=== PATIENT | female | born 1980 | race African-American/Black ===

== ENCOUNTER 2016-12-14 12:15 | Emergency (ER) | payer SELFPAY ==
[~2016-12-14] VITALS: Ht 160 cm; Wt 127.0 kg
[~2016-12-14 12:15] MED LIST: NO HOME MEDS; ULTRAM50 M1 PO
[2016-12-14] MEDS ORDERED: DOXYCYC MONO50 M1 PO (15:04)
[2016-12-14] MEDS ORDERED: MOTRIN400 MG PO (15:04)
[2016-12-14 15:26] VITALS: BP 168/103
== END 2016-12-14 15:34 | disposition home or self-care (01) | DRG 74 ==
LOC: ED 12:15
DX: G56.01 Carpal tunnel syndrome, right upper limb (principal); L73.9 Follicular disorder, unspecified; I10 Essential (primary) hypertension; F17.210 Nicotine dependence, cigarettes, uncomplicated

== ENCOUNTER 2017-01-02 18:25 | Emergency (ER) | payer SELFPAY ==
[~2017-01-02] VITALS: Ht 160 cm; Wt 120.0 kg
[~2017-01-02 18:25] MED LIST changes: +DOXYCYC MONO50 M1 PO; +MOTRIN400 MG PO
[2017-01-02 19:36] LABS: HEMATOCRIT 40.4 % (37.0-47.0); HEMOGLOBIN 13.1 g/dl (12.0-16.0); IMMATURE GRANULOCYTES 0.3 % (0.0-1.0); MEAN CELL VOLUME 74.5 fL CALC (80.0-100.0); MEAN CORPUSCULAR HGB 24.2 pG CALC (26.0-32.0); MEAN CORPUSCULAR HGB CONC 32.4 g/L CALC (32.0-36.0); NEUT# 2.13 thou/uL (2.00-7.15); RED BLOOD COUNT 5.42 mill/uL (4.20-5.60); RED CELL DISTRI WIDTH 15.7 % (11.5-15.5)
[2017-01-02 20:23] LABS: ALBUMIN 3.9 g/dL (3.2-5.0); ALKALINE PHOSPHATASE 64 u/l (38-126); ANION GAP 15 (6-22 (CALC)); BILIRUBIN, TOTAL 0.4 mg/dL (0.0-1.4); BUN 11 mg/dL (7-17); BUN/CREATININE RATIO 21 (12-20 (CALC)); CALCIUM 9.4 mg/dL (8.4-10.2); CARBON DIOXIDE 24 mmol/l (22-30); CHLORIDE 109 mmol/l (95-108); CREATININE 0.6 mg/dL (0.5-1.0); GFR > 60 ML/MIN (>=60 (CALC)); GFR FOR AFR.AMER. > 60 ML/MIN (>=60 (CALC)); GLUCOSE 104 mg/dL (65-105); SGOT/AST 51 u/l (14-36); SGPT/ALT 51 u/l (9-52); SODIUM 144 mmol/l (137-146); TOTAL PROTEIN 7.3 g/dL (6.3-8.2)
[2017-01-02] MEDS ORDERED: TRAMADOL HYDROC50 MG PO (20:49)
[2017-01-02] MEDS ORDERED: DOXYCYC MONO100 M1 PO (20:49)
[2017-01-02] MEDS ORDERED: PREDNISONE50 MG PO (20:49)
[2017-01-02 21:07] VITALS: BP 160/98
== END 2017-01-02 21:05 | disposition home or self-care (01) | DRG 554 ==
LOC: ED 18:25
PROVIDERS: Emergency Medicine
DX: M19.041 Primary osteoarthritis, right hand (principal); L70.9 Acne, unspecified; M25.441 Effusion, right hand; M25.541 Pain in joints of right hand; M25.562 Pain in left knee; M25.561 Pain in right knee

== ENCOUNTER 2017-01-19 08:30 | Emergency (ER) | payer SELFPAY ==
[~2017-01-19] VITALS: Ht 160 cm; Wt 130.0 kg
[~2017-01-19 08:30] MED LIST changes: +DOXYCYC MONO100 M1 PO; +PREDNISONE50 MG PO; +TRAMADOL HYDROC50 MG PO
[2017-01-19] MEDS ORDERED: LORTAB 1010 MG PO (08:56)
[2017-01-19 09:15] VITALS: BP 120/97
== END 2017-01-19 09:23 | disposition home or self-care (01) | DRG 556 ==
LOC: ED 08:30
DX: M25.542 Pain in joints of left hand (principal); M25.561 Pain in right knee; M25.541 Pain in joints of right hand; M25.562 Pain in left knee

== ENCOUNTER 2017-02-09 08:25 | Emergency (ER) | payer SELFPAY ==
[~2017-02-09] VITALS: Ht 160 cm; Wt 131.0 kg
[~2017-02-09 08:25] MED LIST changes: +LORTAB 1010 MG PO
[2017-02-09 09:34] LABS: URINE BLOOD DIPSTICK TRACE-INTACT (NEGATIVE); URINE COLOR YELLOW; URINE GLUCOSE - DIPSTICK NEGATIVE (NEGATIVE); URINE KETONE 15 mg/dL (NEGATIVE); URINE LEUK ESTERASE NEGATIVE (NEGATIVE); URINE NITRITE - DIPSTICK NEGATIVE (Negative); URINE PROTEIN - DIPSTICK 100 mg/dL (NEG-TRACE); URINE SPECIFIC GRAVITY 1.015; URINE UROBILINOGEN - DIPSTICK >=8.0 E.U./dL (0.2)
[2017-02-09 09:35] LABS: HEMATOCRIT 37.9 % (37.0-47.0); HEMOGLOBIN 12.2 g/dl (12.0-16.0); IMMATURE GRANULOCYTES 1.1 % (0.0-1.0); MEAN CORPUSCULAR HGB 23.8 pG CALC (26.0-32.0); MEAN CORPUSCULAR HGB CONC 32.2 g/L CALC (32.0-36.0); NEUT# 6.78 thou/uL (2.00-7.15); RED BLOOD COUNT 5.12 mill/uL (4.20-5.60); RED CELL DISTRI WIDTH 14.6 % (11.5-15.5)
[2017-02-09 09:38] LABS: URINE BILIRUBIN - DIPSTICK MODERATE (NEGATIVE); URINE CLARITY SL CLOUDY
[2017-02-09 09:39] LABS: URINE EPITHELIAL CELLS MODERATE EPI/hpf (0-FEW); URINE MUCUS FEW hpf (NONE-FEW); URINE RBC 0-2 RBC/hpf (0-5)
[2017-02-09 09:41] LABS: ALBUMIN 3.7 g/dL (3.2-5.0); ALKALINE PHOSPHATASE 64 u/l (38-126); AMYLASE 106 u/l (30-110); ANION GAP 16 (6-22 (CALC)); BILIRUBIN, TOTAL 0.8 mg/dL (0.0-1.4); BUN 9 mg/dL (7-17); BUN/CREATININE RATIO 15 (12-20 (CALC)); CALCIUM 8.9 mg/dL (8.4-10.2); CARBON DIOXIDE 33 mmol/l (22-30); CHLORIDE 94 mmol/l (95-108); CREATININE 0.6 mg/dL (0.5-1.0); GFR > 60 ML/MIN (>=60 (CALC)); GFR FOR AFR.AMER. > 60 ML/MIN (>=60 (CALC)); GLUCOSE 114 mg/dL (65-105); LIPASE 265 u/l (23-300); SGOT/AST 70 u/l (14-36); SGPT/ALT 39 u/l (9-52); SODIUM 139 mmol/l (137-146)
[2017-02-09 09:54] LABS: MYOGLOBIN 161 ng/mL (0 - 62)
[2017-02-09] MEDS ORDERED: HYDROCHLOROT25 MG PO ×2 (11:58→12:11)
[2017-02-09] MEDS ORDERED: POTASSIUM CHLO20 ME1 PO (12:11)
[2017-02-09] MEDS ORDERED: NORCO1 TA1 PO (12:11)
[2017-02-09] MEDS ORDERED: ZOFRAN4 MG/TAB PO (12:11)
[2017-02-09] MEDS ORDERED: LEVAQUIN500 MG PO (12:11)
[2017-02-09 12:30] VITALS: BP 109/67
== END 2017-02-09 12:40 | disposition home or self-care (01) | DRG 446 ==
LOC: ED 08:25
PROVIDERS: Emergency Medicine
DX: K80.20 Calculus of gallbladder without cholecystitis without obstruction (principal); E87.6 Hypokalemia; I10 Essential (primary) hypertension; M19.90 Unspecified osteoarthritis, unspecified site
CPT/HCPCS: Q9967

== ENCOUNTER 2017-03-02 12:38 | Emergency (ER) | payer SELFPAY ==
[~2017-03-02] VITALS: Ht 160 cm; Wt 132.0 kg
[~2017-03-02 12:38] MED LIST changes: +HYDROCHLOROT25 MG PO; +LEVAQUIN500 MG PO; +NORCO1 TA1 PO; +POTASSIUM CHLO20 ME1 PO; +ZOFRAN4 MG/TAB PO
[2017-03-02] MEDS ORDERED: FLONASE AL50 MCG/AC1 XX (15:02)
[2017-03-02] MEDS ORDERED: ALL DAY10 MG PO (15:02)
[2017-03-02] MEDS ORDERED: SUDAFED CONGEST30 MG PO (15:02)
[2017-03-02 15:09] VITALS: BP 122/75
== END 2017-03-02 15:15 | disposition home or self-care (01) | DRG 156 ==
LOC: ED 12:38
DX: R09.82 Postnasal drip (principal); F17.210 Nicotine dependence, cigarettes, uncomplicated; R05 Cough; R06.02 Shortness of breath; R09.81 Nasal congestion

== ENCOUNTER 2017-04-19 15:50 | Observation (INO) | payer SELFPAY ==
[~2017-04-19] VITALS: Ht 165.1 cm; Wt 122.2 kg
[~2017-04-19 15:50] MED LIST changes: +ALL DAY10 MG PO; +FLONASE AL50 MCG/AC1 XX; +SUDAFED CONGEST30 MG PO
--- NOTE | 2017-04-19 15:53 | NUR ---
PATIENT TRANSPORTED TO ROOM FOR EXAM VIA WHEELCHAIR.
[2017-04-19] MEDS ORDERED: HYDROCHLOROT25 MG PO (16:27)
[2017-04-19 16:47] LABS: HEMATOCRIT 40.2 % (37.0-47.0); IMMATURE GRANULOCYTES 0.8 % (0.0-1.0); MEAN CELL VOLUME 77.9 fL CALC (80.0-100.0); MEAN CORPUSCULAR HGB 25.2 pG CALC (26.0-32.0); MEAN CORPUSCULAR HGB CONC 32.3 g/L CALC (32.0-36.0); NEUT# 2.56 thou/uL (2.00-7.15); RED BLOOD COUNT 5.16 mill/uL (4.20-5.60); RED CELL DISTRI WIDTH 15.9 % (11.5-15.5)
--- NOTE | 2017-04-19 16:50 | NUR ---
PATIENT PLACED ON 2L/MIN OF O2 VIA NASAL CANNULA.
[2017-04-19 17:19] LABS: INFLUENZA A NONE DETECTED (NONE DETECT); INFLUENZA B NONE DETECTED (NONE DETECT)
[2017-04-19 17:22] LABS: ANION GAP 15 (6-22 (CALC)); BUN 6 mg/dL (7-17); BUN/CREATININE RATIO 11 (12-20 (CALC)); CARBON DIOXIDE 28 mmol/l (22-30); CHLORIDE 100 mmol/l (95-108); CHOLESTEROL HDL RATIO 7.1 (<4.4 (CALC)); CREATININE 0.5 mg/dL (0.5-1.0); GFR > 60 ML/MIN (>=60 (CALC)); GFR FOR AFR.AMER. > 60 ML/MIN (>=60 (CALC)); POTASSIUM 3.6 mmol/l (3.5-5.1); SODIUM 139 mmol/l (137-146)
--- NOTE | 2017-04-19 17:23 | NUR ---
PATIENT REPORTS CHEST PAIN 7/10 AT THIS TIME.
[2017-04-19 17:39] LABS: BETA-HCG, QUANT(RESULT NUMBER) <2 mIU/mL
[2017-04-19 17:54] LABS: TSH, 3RD GENERATION 0.85 uIU/mL (0.47 - 4.68)
[2017-04-19 17:54] LABS: URINE BLOOD DIPSTICK MODERATE (NEGATIVE); URINE COLOR YELLOW; URINE GLUCOSE - DIPSTICK NEGATIVE (NEGATIVE); URINE KETONE TRACE mg/dL (NEGATIVE); URINE LEUK ESTERASE NEGATIVE (NEGATIVE); URINE NITRITE - DIPSTICK NEGATIVE (Negative); URINE PH 5.5 (4.5-8.0); URINE PROTEIN - DIPSTICK TRACE mg/dL (NEG-TRACE); URINE SPECIFIC GRAVITY 1.025
--- NOTE | 2017-04-19 18:10 | NUR ---
PATIENT TOLERATED IV SITE PLACEMENT WELL. RADIOLOGY CALLED TO TAKE PATIENT DOWN FOR CT SCAN.
[2017-04-19 18:53] LABS: URINE BILIRUBIN - DIPSTICK SMALL (NEGATIVE); URINE CLARITY CLEAR; URINE SQUAMOUS EPITHELIAL CELL FEW EPI/hpf (0-FEW)
--- NOTE | 2017-04-19 18:53 | NUR ---
REPORT GIVEN TO ALLISON CERDA. CARE RELINQUISHED.
[2017-04-19 18:57] LABS: BARBITURATES NEGATIVE (NEGATIVE); COCAINE NEGATIVE (NEGATIVE); METHADONE NEGATIVE (NEGATIVE); OXCYCODONE NEGATIVE (NEGATIVE); TETRAHYDROCANNABIONOL NEGATIVE (NEGATIVE); TRICYLIC ANTIDEPRESSANTS NEGATIVE (NEGATIVE)
--- NOTE | 2017-04-19 19:06 | NUR ---
1 set blood cultures drawn from IV site in right A/C. Pt resting comfortably. talking about current illness. Very plesent.
--- NOTE | 2017-04-19 20:16 | NUR ---
attempted to call report to med/surg, advised that nurse recieving pt is busy will call back.
--- NOTE | 2017-04-19 20:33 | NUR ---
report called to Amadeo on med/surg.
--- NOTE | 2017-04-19 20:40 | NUR ---
PATIENT ARRIVED TO THE FLOOR IN STABLE CONDITION VIA STRETCHER AND ACCOMPANIED BY ED NURSE. PATIENT WEIGHED NND SETTLED TO BED. ORIENT PATIENT TO ROOM CALL SYSYEM. BED IN LOW POSITION AND CALL LIGHT IN REACH.
[2017-04-19 21:00] VITALS: BP 108/80
--- NOTE | 2017-04-20 | NUR ---
PATIENT LYING IN BED QUIETLY AT THIS TIME. NO APPARENT ACUTE DISTRESS NOTED. WILL CONTINUE TO MONITOR.
[2017-04-20 00:09] VITALS: BP 107/72
--- NOTE | 2017-04-20 04:00 | NUR ---
PATIENT RESTING IN BED QUIETLY WITH EYES CLOSED. RESPIRATION EVEN AND NON-LABORED. NO APPARENT ACUTE CHANGES NOTED IN PT'S CONDITION.
[2017-04-20 05:21] VITALS: BP 101/67
[2017-04-20 07:35] VITALS: BP 106/72
--- NOTE | 2017-04-20 07:35 | NUR ---
ASSESSMENT IS COMPLETED: IV SITE IS FREE FROM REDNES OR EDEMA. NO DISTRESS NOTED, BREATH SOUNDS ARE CLEAR, BILATERALLY, NO C/O SOB, HR IS REG,PULSES ARE STRONG X4. CONTINUE TO OSEBRVE AND MONITOR. TELE MONITOR IN PLACE.
[2017-04-20 11:11] VITALS: BP 119/80
--- NOTE | 2017-04-20 12:15 | NUR ---
PT HAS BEEN VISITING IN THE ROOM WITH FAMILY AND FRIENDS. NO DISTRESS NOTED. IV SITE IS FREE FROM REDNESS OR EDEMA. CONTINUE TO OSBERVE AND MONITOR.
[2017-04-20 15:36] VITALS: BP 119/83
--- NOTE | 2017-04-20 16:15 | NUR ---
PT IS RELAXING IN THE ROOM. NO DISTRESS NOTED. IV SITE IS FREE FROM REDNESS OR EDEMA. CONTINUE TO OSEBRVE AND MONITOR.
--- NOTE | 2017-04-20 19:00 | NUR ---
RECEIVED CHANGE OF SHIFT REPORT FROM TEOFILO FRANCIS. PT ALERT AND ORIENTED AND SITTING UP AT BEDSIDE. DENIES PAIN OR DISCOMFORT AT HIS TIME. NO APPARENT ACUTE DISTRESS NOTED. WILL CONTINUE TO MONITOR.
[2017-04-20 19:15] VITALS: BP 114/78
--- NOTE | 2017-04-21 | NUR ---
PT UP TO THE BATHROOM. TELE DANCE ENTERTAINER REPORTS HR OF 140. PT'S ASYMPTOMATIC.
[2017-04-21 00:38] VITALS: BP 107/75
--- NOTE | 2017-04-21 04:00 | NUR ---
PT RESTED WELL DURING THE NIGHT. NO APPARENT ACUTE CHANGES NOTED IN PT'S CONDITION.
[2017-04-21 05:27] VITALS: BP 107/76
[2017-04-21 05:34] LABS: HEMATOCRIT 39.4 % (37.0-47.0); HEMOGLOBIN 12.6 g/dl (12.0-16.0); IMMATURE GRANULOCYTES 1.4 % (0.0-1.0); MEAN CELL VOLUME 77.7 fL CALC (80.0-100.0); MEAN CORPUSCULAR HGB 24.9 pG CALC (26.0-32.0); NEUT# 1.47 thou/uL (2.00-7.15); RED BLOOD COUNT 5.07 mill/uL (4.20-5.60); RED CELL DISTRI WIDTH 15.5 % (11.5-15.5)
[2017-04-21 05:56] LABS: ANION GAP 13 (6-22 (CALC)); BUN 6 mg/dL (7-17); BUN/CREATININE RATIO 14 (12-20 (CALC)); CARBON DIOXIDE 29 mmol/l (22-30); CHLORIDE 104 mmol/l (95-108); CREATININE 0.4 mg/dL (0.5-1.0); GFR > 60 ML/MIN (>=60 (CALC)); GFR FOR AFR.AMER. > 60 ML/MIN (>=60 (CALC)); POTASSIUM 3.8 mmol/l (3.5-5.1); SODIUM 142 mmol/l (137-146)
--- NOTE | 2017-04-21 08:15 | NUR ---
ASSESSMENT IS COMPLETED: IV SITE IS FREE FROM REDNESS OR EDEMA. NO DISTRESS NOTED. HR IS REG,PULSES ARE STRONG X4. ABD IS SOFT WITH ACTIVE BS, CONTINUE TO OSEBRVE AND MONITOR. TELE MONITOR IN PLACE.
[2017-04-21 11:36] VITALS: BP 119/80
--- NOTE | 2017-04-21 12:30 | NUR ---
PT IS SITTING UP IN THE CHAIR. AND VISITING WITH FAMILY, NO DISTRESS NOTED. IV SITE IS FREE FROM REDNESS OR EDEMA. CONTINUE TO OBSERVE AND MONITOR.
[2017-04-21 15:46] VITALS: BP 119/75
--- NOTE | 2017-04-21 16:33 | NUR ---
PT HAS BEEN RELAXING IN BED AND IN THE CHAIR, NO DISTRESS NOTED. IV SITE IS FREE FROM REDNESS OR EDEMA. CONTINUE TO OBSERVE AND MONITOR.
--- NOTE | 2017-04-21 17:17 | NUR ---
SPOKE WITH AND HE WILL DO THE SKIN BIOPSY AT BEDSIDE. WILL BE HERE WHEN HE COM[facility] FOR [facility].
[2017-04-21 19:11] VITALS: BP 112/78
--- NOTE | 2017-04-21 21:38 | NUR ---
PT RESTING IN BED WATCHING TV, NO SIGNS OF DISTRESS NOTED, RESP EVEN AND UNLABORED. PT ALERT AND ORIENTED X3, DISCUSSED POC AND IV INFUSION, VERBALIZED UNDERSTANDING. VOICES NO NEEDS OR COMPLAINTS AT THIS TIME, CALL LIGHT IN REACH,CONTINUE TO MONITOR.
--- NOTE | 2017-04-21 21:55 | NUR ---
PT REQUESTING SLEEPING PILL, PT HAD DISCUSSED WITH CANVAS BASTER DUE TO UPCOMING PROCEDURE IN AM, PT APPEARS TEARFUL/FEARFUL. MEDICATED AT THIS TIME. CALL LIGHT IN REACH,CONTINUE TO MONITOR.
--- NOTE | 2017-04-21 23:07 | NUR ---
IV INFUSION COMPLETED IV SL, PT VOICES NO NEEDS OR COMLAINTS AT THIS TIME, CALL LIGHT IN REACH,CONTINUE TO MONITOR.
[2017-04-21 23:35] VITALS: BP 111/72
--- NOTE | 2017-04-21 23:35 | NUR ---
PT CALLED VIA CALL LIGHT, ENTERED ROOM PT WAS FOUND SITTING ON FLOOR NEXT TO BED. PT STATES SHE THOUGHT SHE WAS STILL CONNECTED TO IV INFUSION AND WENT TO UNPLUG IV POLE TO WALK TO THE BATHROOM BUT TRIPPED OVER CORD.NOTED FLOOR WAS WET DUE TO URINE. PT UP FROM FLOOR WITHOUT ASSISTANCE, STATES HER KNEES ARE SORE DUE TO FALL. NO DEFORMITY NOTED OR APPEARS TO BE BROKEN. PT AMBULATED TO BATHROOM TO SHOWER, AMBULATED WITHOUT DIFFICULTY. INFORMED PT TO CALL WHEN READY TO RETURN TO BED. LINENS CHANGED AND FLOOR CLEANED. NEW GOWNS AND NONSLIP SOCKS PROVIDED.CONTINUE TO MONITOR.
--- NOTE | 2017-04-21 23:55 | NUR ---
ELEVATED MOTORMAN AND DERRICK OPERATOR NOTIFIED OF FALL, INFORMED OF PAIN TO KNEES BILAT DUE TO FALL. TYLENOL GIVEN ORDERED, ENTERED ROOM PT SITTING ON SIDE OF BED, TELEMETRY REPLACED. PITCHER OF WATER GIVEN AND TYLENOL.INFORMED PT TO CALL FOR ASSISTANCE, VERBALIZED UNDERSTANDING. CALL LIGHT IN REACH, SIDE RAILS X2, CONTINUE TO MONITOR.
--- NOTE | 2017-04-22 00:32 | NUR ---
PT RESTING IN BED ON STOMACH, ICE PACKS OFFERED, PT STATES SHE IS "JUST A LITTLE SORE" DECLINED ICE PACKS. CALL LIGHT IN REACH, CONTINUE TO MONITOR.
[2017-04-22 04:35] VITALS: BP 101/68
--- NOTE | 2017-04-22 05:12 | NUR ---
PT RESTING IN BED WITH EYES CLOSED NO SIGNS OF DISTRESS NOTED, RESP EVEN AND UNLABORED. CONTINUE TO MONITOR.
[2017-04-22 05:34] LABS: HEMATOCRIT 37.6 % (37.0-47.0); HEMOGLOBIN 12.3 g/dl (12.0-16.0); MEAN CELL VOLUME 78.2 fL CALC (80.0-100.0); MEAN CORPUSCULAR HGB 25.6 pG CALC (26.0-32.0); MEAN CORPUSCULAR HGB CONC 32.7 g/L CALC (32.0-36.0); RED BLOOD COUNT 4.81 mill/uL (4.20-5.60); RED CELL DISTRI WIDTH 15.4 % (11.5-15.5)
[2017-04-22 05:44] LABS: ANION GAP 15 (6-22 (CALC)); BUN 8 mg/dL (7-17); BUN/CREATININE RATIO 15 (12-20 (CALC)); CARBON DIOXIDE 29 mmol/l (22-30); CHLORIDE 102 mmol/l (95-108); CREATININE 0.5 mg/dL (0.5-1.0); GFR > 60 ML/MIN (>=60 (CALC)); GFR FOR AFR.AMER. > 60 ML/MIN (>=60 (CALC)); MAGNESIUM 1.9 mg/dL (1.6-2.3); POTASSIUM 3.7 mmol/l (3.5-5.1); SODIUM 142 mmol/l (137-146)
[2017-04-22 07:10] VITALS: BP 99/54
--- NOTE | 2017-04-22 07:10 | NUR ---
ASSESSMENT COMPLETED: PT IS RELAXING IN BED , STATED" I HIT MY KNEES AND R ELBOW LAST NIGHT" NO ABRASIONS NOTED. IV SITE IS FREE FROM REDNESS OR EDEMA. HR IS REG, PULSES ARE STRONG X4,ABD IS SOFT WITH ACTIVE BS, CONTINUE TO OSBERVE AND MONITOR.
--- NOTE | 2017-04-22 11:10 | NUR ---
IN TO VISIT WITH PT. REMOVED A SKIN LESION ON THE LEFT ARM. STARTED TO BLEED. IV SITE IS FREE FROM REDNESS OR EDEMA. PT TOLERATED WELL. CONTINUE TO OBSERVE AND MONITOR.,
[2017-04-22] MEDS ORDERED: PEPCID20 MG PO (12:33)
[2017-04-22] MEDS ORDERED: PREDNISONE10 MG PO (12:33)
[2017-04-22] MEDS ORDERED: LEVAQUIN750 MG PO (12:33)
--- NOTE | 2017-04-22 12:53 | NUR ---
PT IS IN THE BATHROOM GETTING READY FOR DISCHARGE. IV SITES DISCONTINUED CATHETER INTACT. MO REDNESS OR EDEMA. TELE MONITOR IS TAKEN OFF.
== END 2017-04-22 14:35 | disposition home or self-care (01) | DRG 194 ==
LOC: ED 15:50 → ED-I 19:50 → ED 20:04 → MS2 20:05
PROVIDERS: Family Medicine; Nurse Practitioner Family; ADMIT Internal Medicine; ATTEND Internal Medicine
PROC: 3E0234Z Introduction of Serum, Toxoid and Vaccine into Muscle, Percutaneous Approach (ICD-10-PCS; principal; 2017-04-20)
PROC: 0HBCXZX Excision of Left Upper Arm Skin, External Approach, Diagnostic (ICD-10-PCS; 2017-04-22)
DX: J18.9 Pneumonia, unspecified organism (principal); Z68.41 Body mass index [BMI] 40.0-44.9, adult; M35.9 Systemic involvement of connective tissue, unspecified; D72.819 Decreased white blood cell count, unspecified; I10 Essential (primary) hypertension; K80.20 Calculus of gallbladder without cholecystitis without obstruction; R07.9 Chest pain, unspecified; R09.02 Hypoxemia; R06.89 Other abnormalities of breathing; R63.4 Abnormal weight loss; L57.0 Actinic keratosis; I78.1 Nevus, non-neoplastic; Z87.891 Personal history of nicotine dependence; Z23 Encounter for immunization
CPT/HCPCS: G0378; J1650; Q9967

== ENCOUNTER 2017-05-12 21:29 | Observation (INO) | payer SELFPAY ==
[~2017-05-12] VITALS: Ht 165.1 cm; Wt 118.0 kg
[~2017-05-12 21:29] MED LIST changes: +LEVAQUIN750 MG PO; +PEPCID20 MG PO; +PREDNISONE10 MG PO
[2017-05-12 22:29] LABS: HEMATOCRIT 38.6 % (37.0-47.0); HEMOGLOBIN 12.7 g/dl (12.0-16.0); IMMATURE GRANULOCYTES 0.4 % (0.0-1.0); MEAN CELL VOLUME 78.5 fL CALC (80.0-100.0); MEAN CORPUSCULAR HGB 25.8 pG CALC (26.0-32.0); MEAN CORPUSCULAR HGB CONC 32.9 g/L CALC (32.0-36.0); NEUT# 3.98 thou/uL (2.00-7.15); RED BLOOD COUNT 4.92 mill/uL (4.20-5.60); RED CELL DISTRI WIDTH 15.1 % (11.5-15.5)
[2017-05-12 22:40] LABS: ANION GAP 17 (6-22 (CALC)); BILIRUBIN, TOTAL 0.6 mg/dL (0.0-1.4); BUN 7 mg/dL (7-17); BUN/CREATININE RATIO 14 (12-20 (CALC)); CARBON DIOXIDE 26 mmol/l (22-30); CHLORIDE 98 mmol/l (95-108); CREATININE 0.5 mg/dL (0.5-1.0); GFR > 60 ML/MIN (>=60 (CALC)); GFR FOR AFR.AMER. > 60 ML/MIN (>=60 (CALC)); POTASSIUM 3.5 mmol/l (3.5-5.1); SGOT/AST 111 u/l (14-36); SGPT/ALT 45 u/l (9-52); SODIUM 137 mmol/l (137-146)
[2017-05-12 22:47] LABS: INFLUENZA A NONE DETECTED (NONE DETECT); INFLUENZA B NONE DETECTED (NONE DETECT)
[2017-05-12 22:48] LABS: ALBUMIN 2.9 g/dL (3.2-5.0); ALKALINE PHOSPHATASE 106 u/l (38-126)
[2017-05-12 22:53] LABS: MYOGLOBIN 45 ng/mL (0 - 62)
[2017-05-12 23:47] LABS: URINE BLOOD DIPSTICK NEGATIVE (NEGATIVE); URINE COLOR YELLOW; URINE GLUCOSE - DIPSTICK NEGATIVE (NEGATIVE); URINE KETONE TRACE mg/dL (NEGATIVE); URINE LEUK ESTERASE NEGATIVE (NEGATIVE); URINE NITRITE - DIPSTICK NEGATIVE (Negative); URINE PH 5.5 (4.5-8.0); URINE PROTEIN - DIPSTICK 30 mg/dL (NEG-TRACE); URINE SPECIFIC GRAVITY 1.025
[2017-05-12 23:48] LABS: URINE BILIRUBIN - DIPSTICK SMALL (NEGATIVE); URINE CLARITY SL CLOUDY
[2017-05-12 23:57] LABS: URINE BACTERIA FEW hpf; URINE HYALINE CAST FEW lpf (NONE-RARE); URINE MUCUS MODERATE hpf (NONE-FEW); URINE RBC 0-2 RBC/hpf (0-5); URINE SQUAMOUS EPITHELIAL CELL MANY EPI/hpf (0-FEW)
[2017-05-13] VITALS (7 sets, daily range): BP systolic 103–120; BP diastolic 66–84
[2017-05-13 17:53] LABS: C-REACTIVE PROTEIN 3.1 mg/dL (0-0.9)
[2017-05-14 05:09] LABS: HEMATOCRIT 35.6 % (37.0-47.0); HEMOGLOBIN 11.7 g/dl (12.0-16.0); MEAN CELL VOLUME 79.1 fL CALC (80.0-100.0); MEAN CORPUSCULAR HGB CONC 32.9 g/L CALC (32.0-36.0); NEUT# 2.17 thou/uL (2.00-7.15); RED BLOOD COUNT 4.5 mill/uL (4.20-5.60)
[2017-05-14 05:11] VITALS: BP 113/74
[2017-05-14 05:29] LABS: ANION GAP 15 (6-22 (CALC)); BUN 6 mg/dL (7-17); BUN/CREATININE RATIO 11 (12-20 (CALC)); CARBON DIOXIDE 25 mmol/l (22-30); CHLORIDE 109 mmol/l (95-108); CREATININE 0.5 mg/dL (0.5-1.0); GFR > 60 ML/MIN (>=60 (CALC)); GFR FOR AFR.AMER. > 60 ML/MIN (>=60 (CALC))
[2017-05-14 05:30] LABS: SODIUM 145 mmol/l (137-146)
[2017-05-14 07:54] VITALS: BP 116/81
[2017-05-14 12:00] VITALS: BP 104/62
[2017-05-14 16:00] VITALS: BP 111/76
[2017-05-14 20:04] VITALS: BP 122/78
[2017-05-15] VITALS: BP 116/60
[2017-05-15 04:00] VITALS: BP 109/66
[2017-05-15 07:34] LABS: HEMATOCRIT 35.5 % (37.0-47.0); HEMOGLOBIN 11.5 g/dl (12.0-16.0); MEAN CELL VOLUME 79.8 fL CALC (80.0-100.0); MEAN CORPUSCULAR HGB 25.8 pG CALC (26.0-32.0); MEAN CORPUSCULAR HGB CONC 32.4 g/L CALC (32.0-36.0); RED BLOOD COUNT 4.45 mill/uL (4.20-5.60); RED CELL DISTRI WIDTH 15.2 % (11.5-15.5)
[2017-05-15 07:35] VITALS: BP 118/77
[2017-05-15 07:46] LABS: ANION GAP 14 (6-22 (CALC)); BUN 10 mg/dL (7-17); BUN/CREATININE RATIO 16 (12-20 (CALC)); CARBON DIOXIDE 25 mmol/l (22-30); CHLORIDE 109 mmol/l (95-108); CREATININE 0.6 mg/dL (0.5-1.0); GFR > 60 ML/MIN (>=60 (CALC)); GFR FOR AFR.AMER. > 60 ML/MIN (>=60 (CALC)); POTASSIUM 3.4 mmol/l (3.5-5.1); SODIUM 144 mmol/l (137-146)
[2017-05-15 13:15] VITALS: BP 102/66
[2017-05-15 16:08] VITALS: BP 124/82
[2017-05-15 19:35] VITALS: BP 120/73
[2017-05-16 00:17] VITALS: BP 113/68
[2017-05-16 04:15] VITALS: BP 135/87
[2017-05-16 07:55] VITALS: BP 129/86
[2017-05-16 10:37] VITALS: BP 129/84
[2017-05-16 15:11] VITALS: BP 131/83
== END 2017-05-16 17:35 | disposition short-term general hospital (02) | DRG 194 ==
LOC: ED 21:29 → ED-I 23:55 → ED 05-13 00:14 → MS2 05-13 00:15
PROVIDERS: Emergency Medicine; Nurse Practitioner Family; ADMIT Internal Medicine; ATTEND Internal Medicine
PROC: 0W993ZX Drainage of Right Pleural Cavity, Percutaneous Approach, Diagnostic (ICD-10-PCS; principal; 2017-05-14)
DX: J18.9 Pneumonia, unspecified organism (principal); M35.8 Other specified systemic involvement of connective tissue; J90 Pleural effusion, not elsewhere classified; Z68.41 Body mass index [BMI] 40.0-44.9, adult; I10 Essential (primary) hypertension; R09.02 Hypoxemia; L57.0 Actinic keratosis; I78.1 Nevus, non-neoplastic; K80.20 Calculus of gallbladder without cholecystitis without obstruction; R91.8 Other nonspecific abnormal finding of lung field; R63.4 Abnormal weight loss; E87.6 Hypokalemia
CPT/HCPCS: G0378; Q9967

== ENCOUNTER 2017-06-06 16:58 | Emergency (ER) | payer SELFPAY ==
[~2017-06-06] VITALS: Ht 165.1 cm; Wt 159.0 kg
[2017-06-06] MEDS ORDERED: DILTIAZEM HCL360 M3 PO (17:06)
[2017-06-06] MEDS ORDERED: METOPROL TAR25 MG PO (17:07)
[2017-06-06] MEDS ORDERED: PREDNISONE10 MG PO (17:07)
[2017-06-06] MEDS ORDERED: BENZONATATE200 MG PO (17:08)
[2017-06-06] MEDS ORDERED: HYDROXYCHLOR200 M1 PO (17:08)
[2017-06-06] MEDS ORDERED: BACTRIM DS1 TAB PO (17:09)
[2017-06-06] MEDS ORDERED: FAMOTIDINE20 M1 PO (17:10)
[2017-06-06] MEDS ORDERED: DIGOXIN0.125 MG PO (17:11)
[2017-06-06] MEDS ORDERED: ADVAIR DISKU IN (17:12)
[2017-06-06] MEDS ORDERED: [UNRECOGNIZED DRUG - OTHER] PO (17:13)
[2017-06-06 17:21] LABS: HEMOGLOBIN 14.7 g/dl (12.0-16.0); IMMATURE GRANULOCYTES 0.8 % (0.0-1.0); MEAN CELL VOLUME 81.1 fL CALC (80.0-100.0); MEAN CORPUSCULAR HGB 26.5 pG CALC (26.0-32.0); MEAN CORPUSCULAR HGB CONC 32.7 g/L CALC (32.0-36.0); NEUT# 9.28 thou/uL (2.00-7.15); RED BLOOD COUNT 5.55 mill/uL (4.20-5.60); RED CELL DISTRI WIDTH 17.4 % (11.5-15.5)
[2017-06-06 17:54] LABS: ALKALINE PHOSPHATASE 106 u/l (38-126); BILIRUBIN, TOTAL 0.5 mg/dL (0.0-1.4); BUN 19 mg/dL (7-17); BUN/CREATININE RATIO 29 (12-20 (CALC)); CARBON DIOXIDE 22 mmol/l (22-30); CHLORIDE 100 mmol/l (95-108); CREATININE 0.7 mg/dL (0.5-1.0); GFR > 60 ML/MIN (>=60 (CALC)); GFR FOR AFR.AMER. > 60 ML/MIN (>=60 (CALC)); SGOT/AST 90 u/l (14-36); SGPT/ALT 167 u/l (9-52); SODIUM 140 mmol/l (137-146); TOTAL PROTEIN 7.2 g/dL (6.3-8.2)
[2017-06-06 18:04] LABS: MYOGLOBIN 23 ng/mL (0 - 62)
[2017-06-06 18:05] LABS: ALBUMIN 3.6 g/dL (3.2-5.0); ANION GAP 23 (6-22 (CALC)); POTASSIUM 4.7 mmol/l (3.5-5.1)
[2017-06-06 19:29] VITALS: BP 108/72
== END 2017-06-06 19:28 | disposition short-term general hospital (02) | DRG 204 ==
LOC: ED 16:58
PROVIDERS: Emergency Medicine
DX: R06.89 Other abnormalities of breathing (principal); I10 Essential (primary) hypertension; Z87.01 Personal history of pneumonia (recurrent)
CPT/HCPCS: J0692; J3475